=== PATIENT | female | born 1970 | race Caucasian/White ===

== ENCOUNTER 2018-09-13 19:51 | Emergency (ER) | payer OTHER ==
[~2018-09-13] VITALS: Ht 165.1 cm; Wt 126.5 kg
[~2018-09-13 19:51] MED LIST: ACETAMINOPHEN325 M1 PO; ACYCLOVIR 400400 MG PO; ALLEGRA-D 12 H1 EAC1 PO; AMOXICILLIN 50500 MG PO; ASPIR 8181 MG PO; ASPIRIN325 PO; BENTYL 20 MG TA20 M1 PO; CARAFATE 1 GM TA1 G1 PO; CETAPHIL MOISTU90 GM TOP; CLOBETASOL EMOL15 GM TOP; COLACE 100 MG100 MG PO; FLEXERIL PO; GNP B-COMPLEX1 EACH PO; HYDROCODON-ACE1 EAC7 PO; HYDROCODONE-AP1 EAC6 PO; IBUPROFEN 600600 M1 PO; IBUPROFEN 800800 M1 PO; IRON PO; IRON325 PO; KEFLEX500 MG PO; KLOR-CON 1010 MEQ PO; LEVAQUIN 500 M500 M1 PO; LEVOTHYROXINE; LEVOXYL125 MCG PO; LEVOXYL50 MCG PO; LEVOXYL75 MCG PO; LOCOID 0.1% CRE15 GM TP; MEDROL DOSPAK21 TAB PO; MIRALAX17 GM PO; NAPROSYN500 MG PO; NEO-SYNEPHRINE15 ML NS; NORCO 5-325 TA1 EACH PO; NORCO PO; ONDANSETRON HCL4 M2 PO; ORTHO TRI-CYCL1 EACH PO; PENICILLIN V P500 MG PO; PHENERGAN 25 MG25 M1 PO; SENNA PO; TOPAMAX50 MG PO; TYLENOL325 MG PO; ULTRAM 50MG TAB50 MG PO; VERAPAMIL HCL40 MG PO; VITAMIN D 5050000 I1 PO; VITAMIN D1000 UNI1 PO; VOLTAREN GEL 1100 G1 TOP; ZOFRAN ODT4 MG PO; ZPAK PO
[2018-09-13 20:16] LABS: URINE BILIRUBIN NEGATIVE (Negative); URINE BLOOD 1+ (Negative); URINE CLARITY CLEAR; URINE COLOR YELLOW; URINE GLUCOSE-RANDOM* NEGATIVE (Negative); URINE KETONES NEGATIVE (Negative); URINE LEUKOCYTES NEGATIVE (Negative); URINE NITRITE NEGATIVE (Negative); URINE PROTEIN (DIPSTICK) NEGATIVE (Negative); URINE SPECIFIC GRAVITY >= 1.030 (1.005-1.035); URINE UROBILINOGEN 0.2 E.U./dl (0.2-1.0)
[2018-09-13 20:34] LABS: SQUAMOUS >10 Many /LPF (0-3)
[2018-09-13 20:35] LABS: BACTERIA None Seen /HPF (None Seen); CASTS None Seen /LPF (None Seen); URINE RBC 3-10 Few /HPF (0-2); URINE WBC 0-5 Rare /HPF (0-5)
[2018-09-13 20:36] LABS: CRYSTALS None Seen /LPF (None Seen)
[2018-09-13 21:20] LABS: ABSOLUTE NEUTROPHILS 4.2 thou/uL (1.4-8.2); BASOPHILS 0.7 % (0.0-2.0); EOSINOPHILS 2.5 % (0.0-3.0); HEMOGLOBIN 13.7 gm/dL (12.0-15.0); LYMPHOCYTES 25.8 % (24.0-44.0); MCH 31.4 pg (26.0-34.0); MCHC 33.4 g/dL (28.0-37.0); MCV 93.9 fL (80.0-100.0); MONOCYTES 6.8 % (1.0-8.0); PLATELET COUNT 205 thou/uL (150-400); POLYS 64.2 % (36.0-66.0); RBC 4.37 mil/uL (4.20-5.00); RDW 12.6 % (10.5-14.5); WBC 6.5 thou/uL (4.0-11.0)
[2018-09-13 21:30] LABS: ANION GAP 11 mmol/L (7-16); BUN 12 mg/dL (7-18); CALCIUM 8.8 mg/dL (8.5-10.1); CHLORIDE 103 mmol/L (98-107); CO2 22 mmol/L (21-32); CREATININE 0.8 mg/dL (0.6-1.0); GLUCOSE 114 mg/dL (74-106); SODIUM 136 mmol/L (136-145)
[2018-09-13 21:38] LABS: ALBUMIN 3.5 g/dL (3.4-5.0); DIRECT BILIRUBIN < 0.1 mg/dL (<0.1-0.3); LIPASE 85 U/L (73-393); SGOT 27 U/L (15-37); SGPT 27 U/L (30-65); TOTAL BILIRUBIN 0.3 mg/dL (<0.1-1.0); TOTAL PROTEIN 7.5 g/dL (6.4-8.2); TROPONIN-I <0.06 ng/mL (<0.06)
[2018-09-13] MEDS ORDERED: TORADOL 10 MG T10 MG PO (23:32)
[2018-09-13 23:50] VITALS: BP 147/80
--- NOTE | 2018-09-14 10:52 | EKG ---
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 : 1970 Requested By: April Hunter Order Number: [id number] MD: Aron Diallo Measurements Intervals [place] Rate: 67 P: 7 GA: 143 QRS: 39 QRSD: 76 T: 17 QT: 396 QTc: 418 Interpretive Statements Sinus rhythm Probable left atrial enlargement Borderline T abnormalities, anterior leads Compared to ECG 01/30/2016 14:28:24 T-wave abnormality now present ST (T wave) deviation no longer present Electronically Signed On 09-14-2018 10:51:38 CDT by Aron Diallo [email or web address] ��������������������������������������������� <ELECTRONICALLY SIGNED> ���������������������������������������� By: Aron Diallo MD ��������������������������������������������� 09/14/18 1051 18 18 Aron Diallo MD /JOSE
== END 2018-09-13 23:50 | disposition home or self-care (01) ==
LOC: ER 19:51
PROVIDERS: Emergency Medicine
DX: R07.89 Other chest pain (principal); I10 Essential (primary) hypertension; E78.00 Pure hypercholesterolemia, unspecified; E05.90 Thyrotoxicosis, unspecified without thyrotoxic crisis or storm; E66.9 Obesity, unspecified; Z68.42 Body mass index [BMI] 45.0-49.9, adult; Z90.49 Acquired absence of other specified parts of digestive tract; Z87.891 Personal history of nicotine dependence; Z88.5 Allergy status to narcotic agent